=== PATIENT | female | born 1950 | race Caucasian/White ===

== ENCOUNTER 2020-09-27 10:34 | Emergency (ER) | payer OTHER, SELFPAY ==
--- NOTE | ~2020-09-27 | XR_ITS ---
EXAMINATION: XR abdomen/kub 1V DATE: 09/27/2020 11:09 INDICATION: Right lower quadrant abdominal pain. TECHNIQUE: A supine view of the abdomen on 2 radiographs was obtained. COMPARISON: None. FINDINGS: There is a large volume of stool in the colon. The small bowel is normal in caliber. There is internal fixation of the proximal femora. IMPRESSION: 1. Large volume of stool in the colon. Reviewed, dictated and finalized at location A.
[2020-09-27 10:45] VITALS: BP 137/84; PULSE 74; RESP 16; TEMP 36.2; O2SAT 98
--- NOTE | 2020-09-27 11:08 | ED.ABDPAIN ---
HPI - Abdominal Pain General Chief Complaint: Abdominal Pain Stated Complaint: right side abdo pain Time Seen by Provider: 09/27/20 10:50 Source: patient, family, RN notes reviewed and old records reviewed Mode of arrival: other (walker) Limitations: no limitations and physical limitation History of Present Illness HPI narrative: 69 year old female who presents to express care using walker to assist with ambulation and accompanied by spouse presents to express care with complaints of abdominal pain to right mid abdomen which radiates at times to her right lower back, states pain is sharp at times, denies any nausea or vomiting or any episodes of diarrhea. Patient states that she has history of constipation and has had past UTI's. Patient denies any burning or pain with urination, states some frequency and urgency. Patient states that she takes Miralax daily. MD elicited complaint: abdominal pain Pertinent past history: constipation Onset (ago): day(s) (1) Pain Consistency: intermittent Location: RLQ (more mid right abdomen) Severity: moderate Pain scale (0-10): 7 Quality: aching and sharp Radiation: back (right lower back) Migration to: other (right lower back) Exacerbating factors: nothing Relieving factors: nothing Associated symptoms: constipation Related Data Hx Last Menstrual Period: post menopausal Home Medications Medication Instructions Recorded Confirmed amantadine HCl 100 mg PO BID 09/27/20 09/27/20 apixaban [Eliquis] 5 mg PO DAILY 09/27/20 09/27/20 carbidopa-levodopa 25 tablet PO DAILY 09/27/20 09/27/20 levothyroxine 112 mcg PO DAILY 09/27/20 09/27/20 lidocaine 5 patch TOPICAL DAILY 09/27/20 09/27/20 meloxicam 7.5 mg PO BID 09/27/20 09/27/20 ropinirole 1 mg PO TID 09/27/20 09/27/20 Allergies Allergy/AdvReac Type Severity Reaction Status Date / Time aloe Allergy Unknown Unknown Verified 09/27/20 10:51 Sulfa (Sulfonamide Allergy Unknown Unknown Verified 09/27/20 10:51 Antibiotics) entacapone AdvReac Unknown Dizziness Verified 09/27/20 10:51 Review of Systems Review of Systems: Narrative: CONSTITUTIONAL: Denies fever, chills, or sweats. EYES: Denies visual changes, redness, or discharge. ENT: Denies rhinorrhea, congestion, sore throat, or otalgia. CARDIOVASCULAR: Denies chest pain, palpitations, or edema. RESPIRATORY: Denies cough or dyspnea. GASTROINTESTINAL: Positive for mid right abdominal pain, no nausea, vomiting, or diarrhea. GENITOURINARY: Denies dysuria or hematuria. SKIN: Denies rash or itching. MUSCULOSKELETAL: Right lower back pain,arthritic joint pains, or myalgia. decreased mobility related to Parkinson NEUROLOGIC: Denies headache, numbness, or weakness. hand tremors PSYCHIATRIC: Denies anxiety or depression. All systems reviewed & are unremarkable except as noted in HPI and below PMFSH Past Medical History Medical History (Updated 10/03/20 @ 08:48 by Maryan Spain NP) Elevated cholesterol Femur fracture, left irina Femur fracture, right irina Hypothyroid Osteoporosis Parkinsons disease Pulmonary embolism Surgical History Surgical History (Updated 10/03/20 @ 08:36 by Maryan Spain NP) H/O section History of right inguinal hernia repair Family History Family History (Updated 10/03/20 @ 08:40 by Maryan Spain NP) Sibling Malignant neoplasm of prostate Acute myocardial infarction Asthma Heart disease Justino's granulomatosis Father Cerebrovascular accident Social History Social History (Updated 10/03/20 @ 08:45 by Maryan Spain NP) Smoking status: Never smoker Alcohol intake: former Alcohol use details: socail Substance use: never Living arrangements: with family Occupation/Education: retired Gender identity (if verbalized by the patient): Female Comments At time of signature, agree with nursing past medical, surgical, social and family history. There is no relevant family history pertinent to the presenting complaint
== END 2020-09-27 11:54 | disposition home or self-care (01) ==
PROVIDERS: Emergency Provider Registered Nurse; PCP Internal Medicine
DX: N39.0 Urinary tract infection, site not specified (principal); K59.00 Constipation, unspecified; E78.00 Pure hypercholesterolemia, unspecified; E03.9 Hypothyroidism, unspecified; M81.0 Age-related osteoporosis without current pathological fracture; Z86.711 Personal history of pulmonary embolism; G20 Parkinson's disease
CPT/HCPCS: 74018; 81003; 87077; 87086; 87088; 99213; G0463

== ENCOUNTER 2022-04-24 13:27 | Emergency (ER) | payer OTHER, SELFPAY ==
--- NOTE | ~2022-04-24 | XR_ITS ---
EXAMINATION: XR chest 2V DATE: 04/24/2022 14:02 INDICATION: Shortness of breath and chest pain. TECHNIQUE: Frontal and lateral views of the chest were obtained. COMPARISON: None. FINDINGS: There is mild scarring at the lung apices. No pleural effusion or pneumothorax. The heart s ize is normal. IMPRESSION: 1. Mild scarring at the lung apices. Reviewed, dictated and finalized at location A. T CULTURE DEVELOPER
--- NOTE | 2022-04-24 13:46 | ECG_ITS ---
Measurements Intervals [place] Rate: 78 P: 62 NM: 168 QRS: 65 QRSD: 93 T: 53 QT: 373 QTc: 425 Interpretive Statements SINUS RHYTHM NORMAL ECG NO PREVIOUS ECG AVAILABLE FOR COMPARISON Electronically Signed On 04-26-2022 15:55:40 HEATING WORKER by Dillon De Dios D.O.
[2022-04-24 13:47] VITALS: BP 136/78; PULSE 79; RESP 20; TEMP 36.4; O2SAT 97
--- NOTE | 2022-04-24 13:49 | ED.CHESTPAIN ---
HPI - Chest Pain General Chief Complaint: Chest Pain Stated Complaint: Chest Pain Time Seen by Provider: 04/24/22 13:44 Source: patient, RN notes reviewed and old records reviewed Mode of arrival: ambulatory Limitations: no limitations History of Present Illness HPI narrative: 71 year old female accompanied by spouse who presents to express care with complaints of feeling short of breath and wheezing which started at 0400 with pain to her left rib area radiating to mid chest at times intermittently since 0400 also Patient reports that she be has increased fatigue lately and also some swelling to her ankles for the past few days. Patient voices concern over symptoms related to past history of pulmonary embolism. Patient is presently on Eliquis. MD complaint: chest pain and other (wheezing and short of breath) Pertinent past history: other (previous PE) Onset (ago): hour(s) (since 0400 today) Pain radiation: other (lower left ribs to medial chest intermittently) Pain scale (0-10): 5 Treatment prior to arrival: other (Tylenol) Related Data Home Medications Medication Instructions Recorded Confirmed amantadine HCl 100 mg capsule 100 mg PO BID 09/27/20 04/24/22 apixaban 5 mg tablet (Eliquis) 5 mg PO BID 09/27/20 04/24/22 carbidopa 25 mg-levodopa 100 mg See Rx Instructions .Route .COMPLEX 09/27/20 04/24/22 tablet levothyroxine 112 mcg tablet 112 mcg PO DAILY 09/27/20 04/24/22 meloxicam 7.5 mg tablet 7.5 mg PO BID 09/27/20 04/24/22 ropinirole 1 mg tablet 1 mg PO TID 09/27/20 04/24/22 calcium citrate 315 mg 1 tablet PO DAILY 04/24/22 04/24/22 calcium-vitamin D3 6.25 mcg (250 unit) tablet carbidopa ER 50 mg-levodopa 200 mg 1 tablet PO HS 04/24/22 04/24/22 tablet,extended release denosumab 60 mg/mL subcutaneous 60 mg subcut [id number] 04/24/22 04/24/22 syringe (Prolia) inulin 1.5 gram chewable tablet 1.5 g PO DAILY 04/24/22 04/24/22 (Children's Fiber Select Gummies) multivit with minerals-iron 18 1 tablet PO DAILY 04/24/22 04/24/22 mg-folic ac 400 mcg-vit K 25 mcg tablet (Adults Multivitamin) Allergies Allergy/AdvReac Type Severity Reaction Status Date / Time aloe Allergy Unknown Unknown Verified 04/24/22 14:04 Sulfa (Sulfonamide Allergy Unknown Unknown Verified 04/24/22 14:04 Antibiotics) entacapone AdvReac Unknown Dizziness Verified 04/24/22 14:04 Review of Systems Review of Systems: CONSTITUTIONAL: Denies fever, chills, or sweats. EYES: Denies visual changes, redness, or discharge. ENT: Denies rhinorrhea, congestion, sore throat, or otalgia. CARDIOVASCULAR: reports left lower rib area pain radiating to medial chest intermittently ,no palpitations, trace pedal edema RESPIRATORY: Denies cough reports some dyspnea. GASTROINTESTINAL: Denies abdominal pain, nausea, vomiting, or diarrhea. GENITOURINARY: Denies dysuria or hematuria. SKIN: Denies rash or itching. MUSCULOSKELETAL: Denies back pain, joint pain, or myalgia. NEUROLOGIC: Denies headache, numbness, or weakness. PSYCHIATRIC: Denies anxiety or depression. All systems reviewed & are unremarkable except as noted in HPI and below PMFSH Past Medical History Medical History (Updated 04/29/22 @ 16:33 by Maryan Spain NP) Elevated cholesterol Femur fracture, left irina Femur fracture, right irina Hypothyroid Osteoporosis Parkinsons disease Pulmonary embolism Surgical History Surgical History H/O section History of right inguinal hernia repair Family History Family History Sibling Malignant neoplasm of prostate Acute myocardial infarction Asthma Heart disease Justino's granulomatosis Father Cerebrovascular accident Social History Social History Smoking status: Never smoker Alcohol intake: former Alcohol use details: social Substance use: never Living
== END 2022-04-24 14:45 | disposition short-term general hospital (02) ==
PROVIDERS: Emergency Provider Registered Nurse; PCP Internal Medicine
DX: R07.9 Chest pain, unspecified (principal); Z20.822 Contact with and (suspected) exposure to COVID-19; E78.00 Pure hypercholesterolemia, unspecified; E03.9 Hypothyroidism, unspecified; M81.0 Age-related osteoporosis without current pathological fracture; G20 Parkinson's disease; Z86.711 Personal history of pulmonary embolism
CPT/HCPCS: 71046; 87426; 87804; 93005; 99213; C9803; G0463

== ENCOUNTER 2023-08-18 16:48 | Emergency (ER) | payer OTHER, SELFPAY ==
[2023-08-18 17:04] VITALS: BP 128/78; PULSE 71; RESP 16; TEMP 36.8; O2SAT 100
--- NOTE | 2023-08-18 17:40 | ED.SKABFB ---
HPI - Skin/Abscess/Foreign Bdy General Chief complaint: Skin/Abscess/Foreign Body Stated complaint: Poss poison gab Time Seen by Provider: 08/18/23 17:20 Source: patient, RN notes reviewed and old records reviewed Mode of arrival: ambulatory (with walker) Limitations: no limitations History of Present Illness HPI narrative: 72 year old female accompanied by spouse presents to express care with complaints of red itchy rash area to her right arm and to her left facial cheek, no swelling or involvement of eye noted.since working in the yard on Friday. Patient reports that rash is itchy and has taken some Benadryl for her symptoms. MD complaint: rash Onset (ago): day(s) (Friday) Severity: moderate Treatments prior to arrival: Benadryl Related Data Home Medications Medication Instructions Recorded Confirmed amantadine HCl 100 mg capsule 100 mg PO BID 09/27/20 08/18/23 apixaban 5 mg tablet (Eliquis) 5 mg PO BID 09/27/20 08/18/23 carbidopa 25 mg-levodopa 100 mg See Rx Instructions .Route .COMPLEX 09/27/20 08/18/23 tablet levothyroxine 112 mcg tablet 112 mcg PO DAILY 09/27/20 08/18/23 meloxicam 7.5 mg tablet 7.5 mg PO BID PRN Pain 09/27/20 08/18/23 ropinirole 1 mg tablet 1 mg PO TID 09/27/20 08/18/23 calcium citrate 315 mg 1 tablet PO DAILY 04/24/22 08/18/23 calcium-vitamin D3 6.25 mcg (250 unit) tablet carbidopa ER 50 mg-levodopa 200 mg 1 tablet PO HS 04/24/22 08/18/23 tablet,extended release denosumab 60 mg/mL subcutaneous 60 mg subcut [id number] 04/24/22 08/18/23 syringe (Prolia) inulin 1.5 gram chewable tablet 1.5 g PO DAILY 04/24/22 08/18/23 (Children's Fiber Select Gummies) multivit with minerals-iron 18 1 tablet PO DAILY 04/24/22 08/18/23 mg-folic ac 400 mcg-vit K 25 mcg tablet (Adults Multivitamin) polyethylene glycol 3350 17 17 g PO BID 08/18/23 08/18/23 gram/dose oral powder (Miralax) Allergies Allergy/AdvReac Type Severity Reaction Status Date / Time aloe Allergy Unknown Unknown Verified 04/24/22 14:04 Sulfa (Sulfonamide Allergy Unknown Unknown Verified 04/24/22 14:04 Antibiotics) entacapone AdvReac Unknown Dizziness Verified 04/24/22 14:04 Review of Systems Review of Systems: CONSTITUTIONAL: Denies fever, chills, or sweats. CARDIOVASCULAR: Denies chest pain, palpitations, or edema. RESPIRATORY: Denies cough or dyspnea. SKIN: Reports rash to right arm and to left cheek that is itchy MUSCULOSKELETAL: Denies joint pain or myalgia. NEUROLOGIC: Denies headache, numbness, or weakness. All systems reviewed & are unremarkable except as noted in HPI and below PMFSH Past Medical History Medical History Elevated cholesterol Femur fracture, left irina Femur fracture, right irina Hypothyroid Osteoporosis Parkinsons disease Pulmonary embolism Surgical History Surgical History H/O section History of right inguinal hernia repair Family History Family History Sibling Malignant neoplasm of prostate Acute myocardial infarction Asthma Heart disease Justino's granulomatosis Father Cerebrovascular accident Social History Social History Smoking status: Never smoker Alcohol intake: former Alcohol use details: social Substance use: never Living arrangements: with family Occupation/Education: retired Gender identity (if verbalized by the patient): Female Comments At time of signature, agree with nursing past medical, surgical, social and family history. There is no relevant family history pertinent to the presenting complaint Exam Narrative: GENERAL: Well-appearing, well-nourished, and in no acute distress. HEAD: Normocephalic, atraumatic. EYES: PERRLA, conjunctivae clear, and EOMI. ENT: Mucous membranes moist. [place]
== END 2023-08-18 17:55 | disposition home or self-care (01) ==
PROVIDERS: Emergency Provider Registered Nurse; PCP Internal Medicine
DX: L23.7 Allergic contact dermatitis due to plants, except food (principal); E78.00 Pure hypercholesterolemia, unspecified; E03.9 Hypothyroidism, unspecified; M81.0 Age-related osteoporosis without current pathological fracture; G20.A1 Parkinson's disease without dyskinesia, without mention of fluctuations; Z79.01 Long term (current) use of anticoagulants
CPT/HCPCS: 99213; G0463